=== PATIENT | male | born 1960 | race American Indian/Alaskan Native ===

== ENCOUNTER 2019-11-18 17:30 | Emergency (ER) | payer OTHER ==
[2019-11-18 18:01] VITALS: BP 149/69
[2019-11-18] MEDS ORDERED: ACETAMINOPHEN 325 MG TAB PO ONE (18:02)
[2019-11-18] MEDS ORDERED: IBUPROFEN 600 MG TAB PO ONE ×2 (18:03→18:05)
[2019-11-18 18:30] LABS: Hematocrit 42.1 % (35.5-45.6); Hemoglobin 13.9 gm/dl (11.8-15.2); Mean Corpuscular HGB Conc 33 % (32-34); Mean Corpuscular Volume 90 fl (84-94); Platelet Count 239 K/mm3 (140-440); Red Blood Count 4.67 M/mm3 (3.65-5.03); Red Cell Distribution Width 13.6 % (13.2-15.2)
[2019-11-18 18:51] LABS: BUN/Creatinine Ratio 16; Blood Urea Nitrogen 19 mg/dL (9-20); Calcium 9.6 mg/dL (8.4-10.2); Hemolysis Index 8
--- NOTE | 2019-11-18 22:20 | Emergency Department Report ---
ED General Adult HPI - General Chief complaint: Weakness Stated complaint: DEHYDRATION PUI?: No Time Seen by Provider: 11/18/19 22:07 Source: patient, RN notes reviewed, old records reviewed Mode of arrival: Ambulatory Limitations: No Limitations - History of Present Illness Initial comments: The patient was evaluated in the emergency department for symptoms described in the history of present illness. He/she was evaluated in the context of the global COVID-19 pandemic, which necessitated consideration that the patient migh t be at risk for infection with the virus that causes COVID-19. Institutional protocols and algorithms that pertain to the evaluation of patients at risk for COVID-19 are in a state of rapid change based on information released by regulatory bodies including the CDC and federal and state organizations. These policies and algorithms were followed during the patient's care in the emergency department. Please note that these policies, procedures and recommendations changed on a rapid basis. The patient is a 59-year-old gentleman who is not known to myself previously. He has a history of diabetes, and obesity. He reportedly had a negative COVID test today. He presents to the ER with a complaint of painless fatigue, weakness, denies exertional shortness of breath, denies vomiting, diaphoresis, loss of taste, loss of smell, feels like he has "heaviness in his eyes." The patient states that he feels "dehydrated." He states that he is not compliant with his diabetic medication. He states that he is not compliant with his diabetic diet. Symptoms present for the past few days. He denies loss of vision, sore throat, severe thunderclap headache, chest pain, abdominal pain, vomiting or diaphoresis. On review of systems, he also endorses that he snores quite a bit. He does not have a formal diagnosis of sleep apnea. He states he has his diabetic medications in his car. -: Gradual, days(s) Severity scale (0 -10): 0 Improves with: none Worsens with: none - Related Data Allergies Allergy/AdvReac Type Severity Reaction Status Date / Time No Known Allergies Allergy Unverified 11/18/19 17:58 ED Review of Systems ROS: Stated complaint: DEHYDRATION Other details as noted in HPI Constitutional: denies: fever Eyes: denies: vision change ENT: congestion Respiratory: denies: shortness of breath Cardiovascular: denies: chest pain Gastrointestinal: denies: abdominal pain Genitourinary: denies: dysuria Musculoskeletal: denies: back pain Neurological: weakness ED Past Medical Hx - Past Medical History Previous Medical History?: Yes Hx Diabetes: Yes - Surgical History Past Surgical History?: No ED Physical Exam - General Limitations: No Limitations General appearance: alert, in no apparent distress - Head Head exam: Present: atraumatic, normocephalic - Eye Eye exam: Present: normal appearance, EOMI. Absent: nystagmus - ENT ENT exam: Present: normal exam, normal orophraynx, mucous membranes moist, normal external ear exam - Neck Neck exam: Present: normal inspection, full ROM. Absent: tenderness, meningismus - Respiratory Respiratory exam: Present: normal lung sounds bilaterally. Absent: respiratory distress, wheezes, rales, rhonchi, stridor - Cardiovascular Cardiovascular Exam: Present: regular rate, normal rhythm, normal heart sounds. Absent: bradycardia, tachycardia, irregular rhythm, systolic murmur, diastolic murmur, rubs, gallop - GI/Abdominal GI/Abdominal exam: Present: soft. Absent: distended, tenderness, guarding, rebound, rigid, pulsatile mass - Rectal Rectal exam: Present: deferred - Extremities Exam Extremities exam: Present: normal inspection, full ROM, other (2+ pulses noted in the bilateral upper and lower extremities. There is no palpable cord. nega tive Homans sign. Muscular compartments are soft. The pelvis is stable.). Absent: pedal edema, calf tenderness - Back Exam Back exam: Present: normal inspection, full ROM. Absent: tenderness, CVA tenderness (R), CVA tenderness (L), paraspinal tenderness, vertebral tenderness - Neurological Exam Neurological exam: Present: alert, oriented X3, normal gait, other (There is no facial droop. The tongue is midline. Extraocular movements are intact bilaterally. There is 5 out of 5 strength in bilateral upper and lower extremities. Sensation is intact to light touch bilateral upper and lower extremities. There is no past-pointing. There is no pronator drift. There is normal [id number]. There is a normal gait.). Absent: motor sensory deficit - Psychiatric Psychiatric exam: Present: normal affect, normal mood - Skin Skin exam: Present: warm, dry, intact, normal color. Absent: rash ED Course Vital Signs 11/18/19 18:00 Temperature 100.2 F H Pulse Rate 98 H Respiratory 16 Rate Blood Pressure 149/69 [Right] O2 Sat by Pulse 97 Oximetry ED Medical Decision Making - Lab Data Result diagrams: 11/18/19 18:07 11/18/19 18:07 Vital Signs 11/18/19 18:00 Temperature 100.2 F H Pulse Rate 98 H Respiratory 16 Rate Blood Pressure 149/69 [Right] O2 Sat by Pulse 97 Oximetry Lab Results 11/18/19 11/18/19 Range/Units 18:07 18:07 WBC 7.5 (4.5-11.0) K/mm3 RBC 4.67 (3.65-5.03) M/mm3 Hgb 13.9 (11.8-15.2) gm/dl Hct 42.1 (35.5-45.6) % MCV 90 (84-94) fl MCH 30 (28-32) pg MCHC 33 (32-34) % RDW 13.6 (13.2-15.2) % Plt Count 239 (140-440) K/mm3 Sodium 133 L (137-145) mmol/L Potassium 4.9 (3.6-5.0) mmol/L Chloride 92.6 L (98-107) mmol/L Carbon Dioxide 25 (22-30) mmol/L Anion Gap 20 mmol/L BUN 19 (9-20) mg/dL Creatinine 1.2 (0.8-1.3) mg/dL Estimated GFR > 60 ml/min BUN/Creatinine Ratio 16 % Glucose 321 H (75-100) mg/dL Calcium 9.6 (8.4-10.2) mg/dL - Medical Decision Making Differential diagnosis, including but not limited to: Obesity, deconditioning, hyperglycemia, viral syndrome, COVID-19, noncompliance, obstructive sleep apnea Assessment and plan: 59-year-old gentleman with low-grade temperature of 100.2, nonspecific symptoms, reported negative COVID test, clear lung sounds, saturating well on room air, not compliant with diet and medications, who snores at night. Patient does not appear to have an emergent medical condition at this time. I have advised the patient to remain compliant with diabetic diet, diabetic medications. I advised the patient he would benefit from copious oral hydration, preferably with water. I also counseled the patient that he might benefit from an outpatient sleep study to evaluate for possible obstructive sleep apnea. Low-grade temperature reviewed and appreciated, Patient may also be experiencing COVID-19. However, even if patient has COVID, given lack of hypoxia and clinical decompensation, clear lung sounds, unremarkable physical exam, treatment would be supportive at this time. No need to follow-up with his outpatient primary care doctor for his chronic hyperglycemia. Critical care attestation.: If time is entered above; I have spent that time in minutes in the direct care of this critically ill patient, excluding procedure time. ED Disposition Clinical Impression: Hyperglycemia, History of snoring, Suspected COVID-19 virus infection Disposition: DC-01 TO HOME OR SELFCARE Is pt being admited?: No Does the pt Need Aspirin: No Condition: Stable Instructions: COVID-19, Snoring (ED), Diabetic Hyperglycemia (ED) Additional Instructions: As we discussed, the patient most likely has novel coronavirus/COVID. the symptoms of COVID will typically persist 10 to 14 days. There is no cure at this time for COVID. Please make certain to self isolate and self quarantine, follow-up with an outpatient primary care doctor within the next 3 to 5 days, wash hands with soap and water frequently, thoroughly and often, patient may take the prescribed medications as needed and directed. Advance diet and drink plenty of fluids as tolerated. Avoid interactions with the very elderly, very young, and those with chronic medical conditions. Return to the emergency room right away with new pain, worsening pain, migration of pain, projectile vomiting, change in mental status, confusion, inability to tolerate liquid feeds, new, worsened or different symptoms not present on the initial emergency room evaluation. We also recommend that the patient remain compliant with a diabetic diet, drink 4 to 6 cups of water per day, and make certain to remain compliant with diabetic medications. High blood sugar may also be contributing to patient's symptoms. In addition, the patient may have obstructive sleep apnea, and should follow-up with a flight paramedic/sleep specialist, such as Dr. Jeff within the next month. Referrals: CALEB CHANDLER MD [Staff Physician] - 3-5 Days MILLIE JEFF MD [Staff Physician] - 3-5 Days Forms: Work/School Release Form(ED)
== END 2019-11-18 22:45 | disposition home or self-care (01) ==
LOC: ED 17:30
DX: E11.65 Type 2 diabetes mellitus with hyperglycemia (principal); Z20.828 Contact with and (suspected) exposure to other viral communicable diseases
CPT/HCPCS: 36415; 80048; 85027